=== PATIENT | male | born 1945 | race Caucasian/White ===

== ENCOUNTER → 2021-03-17 | Day surgery (SDC) | payer OTHER ==
[~2021-03-17] MED LIST: ASCO500C PO; CYAN100072 PO; ESOM20CA PO; EZET10TA20 PO; GLYB5TAB3 PO; IPRATRPIUM/ALBUTEROL 0.5/2.5MG 3 ML NEBU. NEB PRN; IV RINGERS SOLUTION,LACTATED 1,000 ML IV SCH; LEVO150T PO; LIDOCAINE 2% PF 5 ML VIAL. ONE; METF10007 PO; MIDAZOLAM HCL PF 2 MG/2 ML VIAL. IV ONE; MULT-445 PO; ONDANSETRON PF 4 MG/2 ML VIAL. IV PRN; PROPOFOL 10,000 MCG/ML (20ML) VIAL IV ONE; TAMS0.4C97 PO; co q-10 PO; fish oil PO; metoprolol PO; vitamin d PO
[2021-03-17 12:05] VITALS: BP 180/90
== END | disposition home or self-care (01) ==
LOC: SURG 08:19
PROVIDERS: ATTEND Internal Medicine Gastroenterology
DX: Z12.11 Encounter for screening for malignant neoplasm of colon (principal); K64.8 Other hemorrhoids; K63.89 Other specified diseases of intestine; E11.9 Type 2 diabetes mellitus without complications; I10 Essential (primary) hypertension; Z86.010 Personal history of colon polyps; Z87.891 Personal history of nicotine dependence; Z79.899 Other long term (current) drug therapy; Z98.890 Other specified postprocedural states
CPT/HCPCS: 82947; G0105; J2001; J2704; J7120; 45378